=== PATIENT | female | born 1945 | race Caucasian/White ===

== ENCOUNTER 2018-06-18 09:56 | Emergency (ER) | payer OTHER ==
[~2018-06-18] VITALS: Ht 162.6 cm; Wt 68.9 kg
[~2018-06-18 09:56] MED LIST: ALPRAZOLAM0.25 MG PO; AMO500 PO; ANTIVERT/2525 MG PO; ATI0.5 PO; BIA500 PO; CYMBALTA30 M1 PO; DICLOFENAC SOD75 M1 PO; ESG PO; GABAPENTIN100 M2 PO; GLU500 PO; LEXAPRO10 MG PO; LEXAPRO20 MG PO; LISINOPRIL10 MG PO; MAC100 PO; METOCLOPRAMIDE10 MG PO; METP PO; NAPROSYN375 MG; NAPROSYN375 MG PO; PRI20 PO; SIMVASTATIN20 M1 PO; XALOS OS; XAN5 PO; ZES10 PO; ZOCOR40 MG PO
[2018-06-18 10:14] VITALS: Ht 162.6 cm; Wt 68.9 kg
[2018-06-18 11:48] LABS: microscopic required? YES; urine erythrocyte NEGATIVE (NEGATIVE)
[2018-06-18 11:48] LABS: BASOPHIL % 0.3 % (0-2); PLATELET COUNT 305 x10^3mcL (130-400); RED CELL DISTRIBUTION WIDTH 13.9 % (11.5-14.5)
[2018-06-18 11:58] LABS: CALCIUM 8.5 mg/dL (8.5-10.1); CARBON DIOXIDE 29.5 mmol/L (21-32); CHLORIDE SERUM 95 mmol/L (98-107); CREATININE SERUM 0.6 mg/dL (0.6-1.0); GLUCOSE SERUM 102 mg/dL (74-106); POTASSIUM SERUM 3.5 mmol/L (3.5-5.1); SODIUM SERUM 130 mmol/L (136-145)
[2018-06-18 12:09] LABS: ALBUMIN 3.9 g/dL (3.4-5.0); ALKALINE PHOSPHATASE 89 U/L (46-116); ALT/SGPT 27 U/L (14-59); AMYLASE 62 U/L (25-115); AST/SGOT 24 U/L (15-37); CHOLESTEROL 152 mg/dL (<200); LIPASE 145 IU/L (73-393); MAGNESIUM 2.1 mg/dL (1.8-2.4); T4(THYROXINE) 11.9 ug/dL (4.7-13.3); TOTAL PROTEIN, SERUM 7.9 g/dL (6.4-8.2)
[2018-06-18 12:14] LABS: HDL CHOLESTEROL 90 mg/dL (40-60)
[2018-06-18 12:30] LABS: AMPHETAMINE QUAL UR NONE DETECTED (See below)
[2018-06-18 15:35] VITALS: BP 109/63
== END 2018-06-18 16:35 | disposition home or self-care (01) ==
LOC: ED 09:56
PROVIDERS: Emergency Medicine
DX: F41.9 Anxiety disorder, unspecified (principal); R20.0 Anesthesia of skin; N39.0 Urinary tract infection, site not specified; I10 Essential (primary) hypertension; E03.9 Hypothyroidism, unspecified; E78.00 Pure hypercholesterolemia, unspecified; E11.9 Type 2 diabetes mellitus without complications; Z98.51 Tubal ligation status
CPT/HCPCS: 36415; 82962